=== PATIENT | male | born 1950 | race Caucasian/White ===

== ENCOUNTER 2020-08-03 15:25 | Inpatient (IN) ==
[2020-08-03] MEDS ORDERED: Melatonin 3 MG TABLET PO PRN (21:30)
[2020-08-03] MEDS ORDERED: Naloxone 0.4 MG/ML INJ IVP PRN (21:30)
[2020-08-03] MEDS ORDERED: Acetaminophen 325 MG TABLET PO PRN (21:30)
[2020-08-03] MEDS ORDERED: Ondansetron 4 MG/2 ML VIAL IVP PRN (21:30)
[2020-08-03] MEDS ORDERED: *HR* HYDROcodone/Acet 5/325 mg TABLET PO PRN (21:30)
[2020-08-03] MEDS: 0.9 % Sodium Chloride 1,000 ML IVC SCH (22:55)
[2020-08-03] MEDS: cefTRIAXone 1,000 MG in Water for inj. (sterile) 10 ML IVP SCH (22:56)
[2020-08-04 06:56] LABS: Basophils % 0.5 %; Eosinophils # 0.4 K/mcL (0.0-0.6); Eosinophils % 4.7 %; Hematocrit 47.2 % (37.5-50.1); Hemoglobin 15.8 g/dL (12.9-16.9); Immature Granulocytes % 0.2 % (0-4); Lymphocytes # 2.1 K/mcL (0.6-4.6); Lymphocytes % 25.9 %; Mean Corpuscular HGB Conc 33.5 g/dL (31.6-35.5); Mean Corpuscular Volume 92.7 fL (83.0-100.0); Mean Platelet Volume 10.1 fL (9.4-12.4); Monocytes # 0.8 K/mcL (0.0-1.3); Monocytes % 9.8 %; Neutrophils # 4.7 K/mcL (1.6-8.9); Platelet Count 191 K/mcL (140-400); Red Blood Count 5.09 M/mcL (4.19-5.50); Red Cell Distribution Width 12.5 % (11.5-14.5); Segmented Neutrophils % 58.9 %; White Blood Count 8.1 K/mcL (4.3-11.1)
[2020-08-04 07:15] LABS: Calcium 9.2 mg/dL (8.6-10.3); Potassium 3.8 mEq/L (3.5-5.1)
[2020-08-04] MEDS: cefTRIAXone 1,000 MG in Water for inj. (sterile) 10 ML IVP SCH (07:59)
[2020-08-04] MEDS ORDERED: Ondansetron 4 MG/2 ML VIAL ONE (09:25)
[2020-08-04] MEDS ORDERED: Lidocaine -MPF 2% 2 ML VIAL ONE (09:25)
[2020-08-04] MEDS ORDERED: *HR* Propofol 200 MG/20 ML VIAL IVP ONE (09:26)
[2020-08-04] MEDS ORDERED: *HR* Belladonna Alkaloids/Opium 60 MG RECTAL SUPPOSITORY RC ONE (09:43)
[2020-08-04] MEDS ORDERED: *HR* FentaNYL (PF) 100 MCG/2 ML VIAL ONE ×3 (09:47→11:23)
[2020-08-04] MEDS ORDERED: EPHEDrine 50 MG/ML VIAL ONE (09:57)
[2020-08-04] MEDS ORDERED: Ondansetron 4 MG/2 ML VIAL IVP PRN ×2 (12:05→13:26)
[2020-08-04] MEDS ORDERED: *HR* Labetalol 20 MG/4 ML SYRINGE IVP PRN (12:05)
[2020-08-04] MEDS ORDERED: *HR* HYDROcodone/Acet 5/325 mg TABLET PO PRN ×2 (12:05→13:26)
[2020-08-04] MEDS ORDERED: *HR* HYDROmorphone PF 0.5 MG/0.5 ML SYRINGE IVP PRN (12:05)
[2020-08-04] MEDS ORDERED: Naloxone 0.4 MG/ML INJ IVP PRN ×2 (12:16→13:26)
[2020-08-04] MEDS ORDERED: Acetaminophen 325 MG TABLET PO PRN (13:26)
[2020-08-04] MEDS ORDERED: Melatonin 3 MG TABLET PO PRN (13:26)
[2020-08-04] MEDS: 0.9 % Sodium Chloride 1,000 ML IVC SCH ×2 (13:47→19:20)
[2020-08-05] MEDS: 0.9 % Sodium Chloride 1,000 ML IVC SCH (04:41)
[2020-08-05 05:47] LABS: Calcium 8.5 mg/dL (8.6-10.3); Potassium 3.9 mEq/L (3.5-5.1)
[2020-08-05 08:32] VITALS: BP 144/77
[2020-08-05] MEDS ORDERED: levoFLOXacin 500 MG TABLET PO SCH (09:00)
== END 2020-08-05 11:30 | disposition home or self-care (01) | DRG 666 ==
LOC: 3ANU
PROVIDERS: ADMIT Internal Medicine; ATTEND Internal Medicine
PROC: UROTURP (2020-08-04 17:30)